=== PATIENT | male | born 1960 | race Caucasian/White ===

== ENCOUNTER 2017-08-16 05:21 | Day surgery (SDC) | payer OTHER ==
[~2017-08-16] VITALS: Ht 180.3 cm; Wt 122.5 kg
--- NOTE | ~2017-08-16 | O ---
[facility] [place] [address] OPERATIVE REPORT Name: CHIKA VILLA Room #: DEP [facility]#: [id number] Admission: 08/16/17 Attend Phys: Jake Daniel MD Discharge: 08/16/17 Date of : 56 Report #: [id number] THIS REPORT FOR: //name// CC: Joseph Redmond DATE OF SERVICE: 08/16/[address] Jake Daniel and Dr. Joseph Deleon. PREOPERATIVE DIAGNOSIS: Incarcerated umbilical hernia. POSTOPERATIVE DIAGNOSIS: Incarcerated umbilical hernia. PROCEDURE: Repair of an incarcerated umbilical hernia. SURGEON: Jake Daniel M.D. ANESTHESIA: Local IV sedation. DESCRIPTION OF PROCEDURE: The patient was brought to the operating room and placed on operative table in the supine position. Sequential compression devices were in place for DVT prophylaxis. There was no indication for preoperative antibiotics. The patient underwent IV sedation. The abdomen was then prepped and draped in a sterile fashion. Skin and subcutaneous tissues were then infiltrated with 0.5% Marcaine and 1% Xylocaine in a 1:1 mixture. A transverse supraumbilical skin incision was then performed using #15 scalpel blade. Hemostasis obtained using electrocautery. Dissection was carried down through subcutaneous tissue to this incarcerated hernia sac, which was dissected free and reduced back through the fascia into the preperitoneal space. Fascia was dissected free superiorly and inferiorly and then closed repairing the fascial defect with interrupted [id number] #1 Prolene sutures. The umbilicus was then tacked to the fascia using simple interrupted 2-0 chromic sutures. Deep and superficial subcutaneous tissue was then reapproximated using simple interrupted 2-0 chromic sutures and the skin then closed with a running 4-0 subcuticular Vicryl stitch. The wound was then dressed with Dermabond, Telfa, 4 x 4 gauze, sponge and tape. The patient was then taken to the recovery room awake, alert and in good condition. Estimated blood loss was less than 5 mL and the patient tolerated procedure well. All sponge, lap and instrument counts correct x 2. <ELECTRONICALLY SIGNED> By: Jake Daniel MD 08/24/17 [id number] [id number] Jake Daniel MD /nt
--- NOTE | ~2017-08-16 | H ---
[facility] [address] HISTORY AND PHYSICAL Name: CHIKA VILLA Room #: 150-3 [facility]#: [id number] Admission: 08/16/17 Attend Phys: Jake Daniel MD Discharge: Date of : 56 Report #: [id number] THIS REPORT FOR: //name// CC: Joseph Daniel PATIENT OF: Dr. Joseph Deleon. CHIEF COMPLAINT: "Lump in my belly button." HISTORY OF PRESENT ILLNESS: The patient is a 56-year-old white male who about 12-15 years ago noticed an umbilical bulge. He denied any recent changes in bowel or bladder habits. He has never had a colonoscopy. He saw Dr. Deleon who recommended surgical consultation. PAST MEDICAL HISTORY: Arthritis, asthma, and viral pericarditis. MEDICATIONS: Albuterol and . ALLERGIES: IV CONTRAST DYE. FAMILY HISTORY: Noncontributory. SOCIAL HISTORY: , quit smoking in 1975. Drinks alcohol occasionally. REVIEW OF SYSTEMS: Pertinent positives as above. Full review of systems otherwise negative. PHYSICAL EXAMINATION: GENERAL: Well-developed, well-nourished, morbidly obese white male, in no acute distress. VITAL SIGNS: Stable. He is afebrile. Height is 71 inches, weight is 267 pounds, BMI of 37. HEENT: Sclerae are nonicteric. Mucous membranes are moist and pink. NECK: There is no adenopathy, no thyromegaly. LUNGS: Clear to auscultation bilaterally, no excursion. CARDIOVASCULAR: Regular rate and rhythm. No murmurs, S3 or S4. No PMI. ABDOMEN: Soft, flat, nontender, obese. No palpable masses. No organomegaly. There is a reducible umbilical hernia. No abdominal incision scars. GENITOURINARY: Normal scrotum, phallus, and testes. No hernias. EXTREMITIES: No clubbing, cyanosis, or edema. NEUROLOGIC: Intact with a clear mental status. IMPRESSION: A 56-year-old white male with an umbilical hernia. I fully discussed with the patient the diagnosis, prognosis, and treatment options. He states he understands and agrees to proposed surgery. [place] [id number] HISTORY AND PHYSICAL Name: CHIKA VILLA Room #: [address] [place] [address].#: [id number] Admission: 08/16/17 Attend Phys: Jake Daniel MD Discharge: Date of : 56 Report #: [id number] PLAN: We will perform an umbilical hernia repair under local IV sedation as an outpatient at [facility]. The procedure and its risks, benefits and possible complications including possible need for mesh were fully discussed with the patient, he states he understands and agrees to proposed surgery. <ELECTRONICALLY SIGNED> By: Jake Daniel MD 08/16/17 [id number] Jake Daniel MD /[place]
[~2017-08-16 05:21] MED LIST: ALBUTEROL2.5 MG/31 INH; CENTRUM SILVER1 EAC4 PO; VITAMINC500 PO
[2017-08-16 11:45] VITALS: BP 157/104
[2017-08-16] MEDS ORDERED: NORCO 5-325 TA1 EACH PO (14:18)
[2017-08-16 15:57] VITALS: BP 157/104
== END 2017-08-16 16:35 | disposition home or self-care (01) ==
LOC: TBA 05:21 → OR 05:21
DX: K42.0 Umbilical hernia with obstruction, without gangrene (principal); M19.90 Unspecified osteoarthritis, unspecified site; J45.909 Unspecified asthma, uncomplicated; Z91.041 Radiographic dye allergy status; Z87.891 Personal history of nicotine dependence; Z98.890 Other specified postprocedural states; Z79.891 Long term (current) use of opiate analgesic
CPT/HCPCS: 50010; 50101; 50386; 50417; 54118; 56524; 56525; 56526; 62110; 62850; 70005